=== PATIENT | female | born 1960 | race African-American/Black ===

== ENCOUNTER 2025-03-10 10:57 | Emergency (ER) | payer OTHER, MEDICARE, SELFPAY ==
[2025-03-10 10:59] VITALS: BP 123/65
[2025-03-10] MEDS: TORADOL 15 MG IV (11:55)
[2025-03-10] MEDS: REGLAN 10 MG IV (11:56)
--- NOTE | 2025-03-10 13:16 | ED.GENMED ---
History of Present Illness
General
Chief Complaint: Headache
Time Seen by Provider: 03/10/25 11:31
History of Present Illness
History of Present Illness:
65-year-old female with history of hyperlipidemia presents to the emergency department for evaluation of a left-sided headache that has been intermittently occurring since Thursday. Pain radiates from the left occiput to the left forehead. No vision
changes, fevers, vomiting, or diarrhea. Does have a history of frequent headaches and this feels similar.
Past History
Past History
ED Past Medical History: Hypercholesterolemia, Psychiatric (anxiety/depression) and Other (chronic low back pain and right knee pain)
ED Past Surgical History: Gynecological (breast biopsy)
Social History
Tobacco: Non-smoker
Alcohol: None
Drug: None
Personal:
Living: with family
Employment: Disabled
Family History
Family History: Other (Noncontributory)
Review of Systems
Review of Systems
Allergies reviewed?: Yes
All Other Systems: ROS reviewed and negative except as documented in HPI and ROS
Phy Exam
Physical Exam
Physical Exam:
GEN: Well appearing, NAD, WDWN
HEENT: Oral mucosa moist, no scleral icterus, no nasal congestion
Cardiac: Regular rate
Lung: No respiratory distress, no tachypnea
MSK: No gross deformity or injuries
Skin: Good color, no pallor or jaundice, no rashes
Neuro: AO x3; CN II-XII grossly intact. BUE strength 5/5 in all chavez, sensation intact and symmetric. BLE strength 5/5 in all chavez, sensation intact and symmetric
Psych: Calm, cooperative
Course
Orders/Labs/Results
Orders:
Orders
03/10/25 11:39
Ketorolac [Toradol] 15 mg IV NOW STA
Metoclopramide [Reglan] 10 mg IV NOW STA
Vital Signs
Initial and Last Documented VS:
Initial Vital Signs
Temp Pulse BP Pulse Ox
97.9 F 72 123/65 99
03/10/25 10:59 03/10/25 10:59 03/10/25 10:59 03/10/25 10:59
Last Documented Vital Signs
Temp Pulse BP Pulse Ox
97.9 F 72 123/65 99
03/10/25 10:59 03/10/25 10:59 03/10/25 10:59 03/10/25 13:16
MDM/Problems Addressed
MDM/Problems Addressed:
Headache resolved after treatment, no neurologic symptoms warranting imaging, discussed further supportive care and return parameters
*Pulse Oximetry
SaO2: 99
Oxygen Mode of Delivery: Room air
Patient hypoxic: no
*Critical Care Note
Total Time (30-74mins, 75-104mins- exclusive of procedures): Not Applicable
ED Attending Note
-
Portions of this chart may have been created with voice recognition software.� Occasional wrong word or��sound alike� substitutions may have occurred due to the inherent limitations of voice recognition software.
Discharge Plan
Departure
Patient Disposition: Home (Routine Discharge)
Date of Disposition: 03/10/25
Time of Disposition: 13:16
Patient with high blood pressure during this ER visit?: No
Discharge Problem:
Unilateral headache
Instructions: Headache, Adult (DC)
Prescriptions:
No Action
methylprednisolone [Medrol (Garcia)] 4 mg tablets,dose pack
See Rx Instructions .ROUTE .COMPLEX Qty: 21 0RF
Rx Instructions:
orally per package directions
Referrals:
Britt Connor NP [Family Provider]
Interventions
Interventions:
*Risk Screen - Suicide Last Done: 03/10/25 11:02
*Neglect/Abuse Screening Last Done: 03/10/25 11:02
*ED- Fall Risk Assessment Last Done: 03/10/25 13:10
*Nursing Disposition Last Done: 03/10/25 13:22
ED- Neurological Assessment Last Done: 03/10/25 13:10
Discharge Date and Time
Discharge Date/Time: 03/10/25 13:22
Print Language: PAKISTANI
== END 2025-03-10 13:22 | disposition home or self-care (01) ==
LOC: EMR 10:57
PROVIDERS: EMERGENCY PHYSICIAN Emergency Medicine; FAMILY PHYSICIAN Nurse Practitioner Adult Health
DX: R51.9 Headache, unspecified (principal); E78.00 Pure hypercholesterolemia, unspecified; F41.9 Anxiety disorder, unspecified; F32.A Depression, unspecified; M54.50 Low back pain, unspecified; M25.561 Pain in right knee; G89.29 Other chronic pain
CPT/HCPCS: 99284; 96374; 96375

== ENCOUNTER 2025-05-27 11:07 | Emergency (ER) | payer MEDICARE, OTHER, SELFPAY ==
[2025-05-27 11:10] VITALS: BP 103/68
--- NOTE | 2025-05-27 13:04 | ED.GENMED ---
History of Present Illness
General
Chief Complaint: Back Pain
Source: patient
Exam Limitations: none
Time Seen by Provider: 05/27/25 12:44
Nursing documentation reviewed up to this point in time: agreed with
History of Present Illness
History of Present Illness:
Patient to ED with complaint of right low back pain. History of chronic low back pain. Prescribed oxycodone but states she has not been taking it for the past month due to difficulty with pharmacy receiving supply. Using IBuprofen which helps
decrease the pain somewhat but reports no help today. Reports shooting pain in low back radiating down to right knee. No numbness or tingling. Nobowel or bladder issues, no saddle paresthesia. Denies fever/chills, recent illness. No recent
trauma. Brought to ED by EMS for eval
Past History
Past History
ED Past Medical History: Hypercholesterolemia, Psychiatric (anxiety/depression) and Other (chronic low back pain and right knee pain)
ED Past Surgical History: Gynecological (breast biopsy)
Social History
Tobacco: Non-smoker
Alcohol: None
Drug: None
Personal:
Living: with family
Employment: Disabled
Family History
Family History: Other (Noncontributory)
Review of Systems
Review of Systems
Allergies reviewed?: Yes
All Other Systems: ROS reviewed and negative except as documented in HPI and ROS
Constitutional: Reports no symptoms
EENT: Reports no symptoms
Respiratory: Reports no symptoms
Cardiac: Reports no symptoms
ABD/GI: Reports no symptoms
: Reports no symptoms
Musculoskeletal: Reports back pain (Pain to right low back, radiating to right knee)
Skin: Reports no symptoms
Neurological: Reports no symptoms
Psychiatric: Reports no symptoms
Phy Exam
General Physical Exam
General Presentation: moderate distress
General age: appears stated age
General Skin: warm and dry
General Habitus: normal
General Mental: alert
Musculoskeletal Exam
Musculoskeletal Exam: no edema and neuro vasc intact
Skin Exam
Skin Exam: normal color, warm/dry and no rash
Psychiatric Exam
Psychiatric Exam: normal mood/affect
Course
Orders/Labs/Results
Orders:
Orders
05/27/25 13:02
HYDROmorphone [Dilaudid] 0.5 mg IV NOW STA
Lidocaine [Lidocaine 4% Patch] 1 patch TOPICAL NOW STA
Apply Lidocaine patch(s) to:: right low back
Ondansetron Injectable [Zofran] 4 mg IV NOW STA
05/27/25 13:04
Dexamethasone Sod Phosphate [Decadron] 10 mg IV NOW STA
05/27/25 13:46
Lumbar Spine Complete, 4 View [CR Lumbar Spine Comp Min 4 Vw*] Urgent
Comment:
Reason For Exam: right pain
05/27/25 14:16
Ketorolac [Toradol] 15 mg IV NOW STA
Vital Signs
Initial and Last Documented VS:
Initial Vital Signs
Temp Pulse Resp BP Pulse Ox
98.5 F 81 16 103/68 100
05/27/25 11:10 05/27/25 11:10 05/27/25 11:10 05/27/25 11:10 05/27/25 11:10
Last Documented Vital Signs
Temp Pulse Resp BP Pulse Ox
98.5 F 78 16 131/74 100
05/27/25 11:10 05/27/25 14:59 05/27/25 14:59 05/27/25 14:59 05/27/25 14:59
*Radiology
Radiology exam reviewed: radiology read reviewed
*Pulse Oximetry
SaO2: 100
Oxygen Mode of Delivery: Room air
Patient hypoxic: no
*Critical Care Note
Total Time (30-74mins, 75-104mins- exclusive of procedures): Not Applicable
Update Note
Update Note:
Patient to ED wtih report of sharp pain to right low back radiating to right knee. This is the usual location of her pain but intensity has increased. SHe noted increasing pain on but has been managing with ibuprofen. TOday pain
escalated. No evidence of cauda equina on exam. WIll give pain meds, decadrion in ED and send for xray. SHe continues to follow with pain management. Next appointment is Thursday.
ED Attending Note
-
Portions of this chart may have been created with voice recognition software.� Occasional wrong word or��sound alike� substitutions may have occurred due to the inherent limitations of voice recognition software.
Discharge Plan
Departure
Patient Disposition: Home (Routine Discharge)
Date of Disposition: 05/27/25
Time of Disposition: 14:16
Patient with high blood pressure during this ER visit?: No
Condition: Good
Covid-19: Not Applicable
Discharge Problem:
Back pain
Instructions: Low Back Pain (DC), Radiculopathy (DC)
Prescriptions:
New
oxycodone 15 mg tablet
15 mg PO TID PRN (Reason: Pain) Qty: 6 0RF
prednisone 20 mg tablet
40 mg PO DAILY Qty: 10 0RF
No Action
methylprednisolone [Medrol (Garcia)] 4 mg tablets,dose pack
See Rx Instructions .ROUTE .COMPLEX Qty: 21 0RF
Rx Instructions:
orally per package directions
Referrals:
Britt Connor NP [Family Provider] - Follow up in 2-3 days
Activity Restrictions/Additional Instructions:
Follow up with pain management on Thursday as scheduled
Interventions
Interventions:
*Risk Screen - Suicide Last Done: 05/27/25 11:10
*General Assessment Last Done: 05/27/25 11:10
*Neglect/Abuse Screening Last Done: 05/27/25 11:10
*ED- Fall Risk Assessment Last Done: 05/27/25 11:35
*ED COVID-19 Vaccine History Last Done: 05/27/25 11:10
*Nursing Disposition Last Done: 05/27/25 15:11
ED-Musculoskeletal Assessment Last Done: 05/27/25 11:35
Discharge Date and Time
Discharge Date/Time: 05/27/25 15:11
Print Language: FAROESE
Musculoskeletal Injury Exam
Musculoskeletal Injury Exam
Right Lower Back:
Pain with Movement?: Moderate
Tender to palpation?: Moderate
Soft tissue swelling?: None
External deformity and angulation?: None
Joint effusion?: None
Contusion?: None
Hematoma-local bleeding into tissue?: None
Strain- Sprain- Tear (Connective tissue injury)?: None
Crepitus with movement?: No
Joint instability?: No
Malalignment/deformity?: No
Range of motion: Limited
Distal skin color and temperature: normal-warm & good color
Capillary Refill: normal
Normal distal neurovascular exam?: Yes
[2025-05-27 13:09] VITALS: BP 127/64
[2025-05-27] MEDS: ZOFRAN 4 MG IV (13:12)
[2025-05-27] MEDS: DILAUDID 0.5 MG IV (13:12)
[2025-05-27] MEDS: LIDOCAINE 4% PATCH 1 PATCH TOPICAL (13:12)
[2025-05-27] MEDS: DECADRON 10 MG IV (13:13)
[2025-05-27] MEDS: TORADOL 15 MG IV (14:20)
[2025-05-27 14:59] VITALS: BP 131/74
== END 2025-05-27 15:11 | disposition home or self-care (01) ==
LOC: EMR 11:07
PROVIDERS: EMERGENCY PHYSICIAN Emergency Medicine; FAMILY PHYSICIAN Nurse Practitioner Adult Health
DX: M54.50 Low back pain, unspecified (principal); G89.29 Other chronic pain; E78.00 Pure hypercholesterolemia, unspecified
CPT/HCPCS: 96374; 96375; 99284; 72110